=== PATIENT | female | born 2000 | race Caucasian/White ===

== ENCOUNTER → 2020-10-06 07:50 | Outpatient (CLI) | payer OTHER, SELFPAY ==
--- NOTE | ~2020-10-06 | US_ITS ---
US soft tissue abdomen 10/06/2020 08:40 Indication: Left upper quadrant pain and swelling for 6 months Procedure: High-resolution ultrasound of the area of interest Comparison: No prior studies for comparison. Findings: There is normal heterogeneous echotexture in the area of interest without focal mass or flu id collection. The overlying musculature demonstrates normal echotexture. Impression: 1: Normal soft tissue ultrasound of the area of interest. No discrete mass. Reviewed, dictated and finalized at location B. Impression: 1: Normal soft tissue ultrasound of the area of interest. No discrete mass.
== END ==
PROVIDERS: Visit Provider Student in an Organized Health Care Education/Training Program
DX: R19.01 Right upper quadrant abdominal swelling, mass and lump (principal)
CPT/HCPCS: 76705